=== PATIENT | female | born 1950 | race Caucasian/White ===

== ENCOUNTER → 2018-01-30 08:50 | Outpatient (CLI) | payer MEDICARE, OTHER, SELFPAY ==
--- NOTE | 2018-01-30 | DI.MG.S_ITS ---
BILATERAL DIGITAL SCREENING MAMMOGRAM 3D/2D WITH CAD: 01/30/2018 CLINICAL: Routine screening. Family history of breast cancer. Comparison is made to exams dated: 08/24/2014 mammogram, 06/04/2013 mammogram, and 08/11/2011 mammogram - [facility]. The tissue of both breasts is predominantly fatty. Current study was also evaluated with a Computer Aided Detection (CAD) system. No significant masses, calcifications, or other findings are seen in either breast. There has been no significant interval change. IMPRESSION: NEGATIVE There is no mammographic evidence of malignancy. A 1 year screening mammogram is recommended. This exam was interpreted at Station ID: [id number]. NOTE: For mammograms, a report in lay terms will be sent to the patient. Approximately 15% of breast malignancies will not be visualized mammographically. In the management of a palpable breast mass, a negative mammogram must not discourage biopsy of a clinically suspicious lesion. Electronically Signed By: Selvin barcenas/tay:01/30/2018 10:41:21 letter sent: Normal Exam ACR BI-RADS Category 1: Negative [id number]
== END ==
PROVIDERS: Family Provider Family Medicine; PCP Family Medicine; Visit Provider Family Medicine
DX: Z12.31 Encounter for screening mammogram for malignant neoplasm of breast (principal); M81.0 Age-related osteoporosis without current pathological fracture; Z80.3 Family history of malignant neoplasm of breast; Z78.0 Asymptomatic menopausal state; E07.9 Disorder of thyroid, unspecified
CPT/HCPCS: 77063; 77067; 77080

== ENCOUNTER → 2019-03-23 15:13 | Outpatient (CLI) | payer MEDICARE, OTHER, SELFPAY ==
--- NOTE | 2019-03-23 | DI.RAD.S_ITS ---
PROCEDURE: XR KNEE RT 3V INDICATIONS: R KNEE PAIN TECHNIQUE: 3 views of the knee were acquired. COMPARISON: [facility], , KNEE 3V RIGHT, 11/07/2016, 18:49. FINDINGS: Bones: There is mild narrowing of the right medial femorotibial compartment. There are small tricompartmental osteophytes. No acute fracture dislocation Soft tissues: No joint effusion. No suspicious soft tissue calcifications. IMPRESSION: Mild right knee osteoarthritis. Dictated by: Neli Gonzáles M.D. on 03/23/2019 at 15:02 Approved by: Neli Gonzáles M.D. on 03/23/2019 at 15:03
--- NOTE | 2019-03-23 | DI.RAD.S_ITS ---
PROCEDURE: XR HIP W PEL IF DONE LT 2V INDICATIONS: L HIP PAIN TECHNIQUE: AP pelvis with lateral view(s) of the left hip(s). COMPARISON: None. FINDINGS: Bones: No fractures or dislocations. Pelvic ring appears intact. No suspicious bony lesions. Soft tissues: The visualized bowel gas pattern is normal. No suspicious soft tissue calcifications. IMPRESSION: Only a slight degree of hip joint osteoarthritis is found present bilaterally, without trauma to the pelvis or hip. Dictated by: Dashawn Miranda M.D. on 03/23/2019 at 16:22 Approved by: Dashawn Miranda M.D. on 03/23/2019 at 16:22
== END ==
PROVIDERS: Family Provider Family Medicine; PCP Family Medicine; Visit Provider Family Medicine
DX: M25.552 Pain in left hip (principal); M25.561 Pain in right knee; M17.11 Unilateral primary osteoarthritis, right knee; M16.12 Unilateral primary osteoarthritis, left hip
CPT/HCPCS: 73502; 73562

== ENCOUNTER 2019-03-27 12:01 | Day surgery (SDC) | payer MEDICARE, OTHER, SELFPAY ==
[2019-03-27] VITALS (8 sets, daily range): BP systolic 114–134; BP diastolic 53–80; PULSE 48–59; RESP 12–19; TEMP 36–36.7; O2SAT 98–100; BMI 38.6
[2019-03-27] MEDS: SODIUM CHLORIDE 0.9% 1,000 ML 84 ML IV ×2 (13:19→17:00)
[2019-03-27] MEDS: HYOSCYAMINE 0.125 MG TABLET PO (13:20)
--- NOTE | 2019-03-27 14:25 | PM.OP.ENDO ---
Operative Date/Time/Diagnoses Date of procedure: 03/27/19 Time of procedure: 14:25 Pre-op diagnosis: 1. Screening for colon cancer 2. History of colon polyps 3. Family history of colon cancer Procedure & Clinicians Study performed: 1. Colonoscopy Same procedure as scheduled: Yes Indications: 1. Screening for colon cancer 2. History of colon polyps 3. Family history of colon cancer Surgeon: Anjelica Corbin Procedure Notes Procedure in detail: ENDOSCOPIST: Anjelica Corbin MD PROCEDURE: Colonoscopy INDICATIONS: 1. Screening for colon cancer 2. History of colon polyps 3. Family history of colon cancer MEDICATION: Levsin 0.125 mg sublingual, incremental doses of Versed and fentanyl until appropriate level sedation achieved. ASA CLASS: 3 CECAL WITHDRAWAL TIME: 7 minutes COMPLICATIONS: None. EXTENT OF PROCEDURE: Cecum. QUALITY OF PREP: Good with portions of liquid stool. PROCEDURE: Prior to insertion of the colonoscope, a digital rectal examination was accomplished with circumferential palpation of the distal rectal mucosa without significant findings being noted. The high-definition pediatric colonoscope was passed into the rectum in the usual fashion and advanced over towards the cecum with some difficulty; various position changes including left lateral decubitus, supine, and right lateral decubitus along with gentle holds were employed to intubate the cecum. The cecum was visualized but not only partially intubated secondary to resistance on the scope. Decision was made not to attempt full intubation to reduce risk. The ileocecal valve was fully visualize but the appendiceal stoma and medial wall were not fully inspected. ASCENDING COLON: As the colonoscope was withdrawn, care was taken to expose and inspect the haustral folds and no abnormalities were seen. HEPATIC FLEXURE: Normal no polyps, diverticula or other abnormalities. TRANSVERSE COLON: Normal no polyps, diverticula or other abnormalities. DESCENDING COLON: Normal no polyps, diverticula or other abnormalities. SIGMOID COLON: Minor diverticulosis, dilated veins, otherwise normal, no polyps, or other abnormalities. RECTUM: Normal. J maneuver was produced. There was no significant perianal disease. The J maneuver was broken. The remainder of the rectum was inspected and there was no external hemorrhoid disease. The scope was withdrawn. IMPRESSION: 1. Partial intubation of cecum 2. Diverticulosis, left-sided, mild 3. Dilated veins, left-sided, consistent with portal hypertension PLAN: 1. Secondary to family history of colon cancer and personal history of colon polyps, recommend repeat colonoscopy in 3-5 years. The possibility of a missed lesion including a malignancy has been discussed with the patient previously. Potential alarm symptoms have been discussed and should be reported immediately. Scope withdrawal time: 7 minutes Sedation minutes: 42 Findings: diverticulosis Specimen(s): none sent Complications: none Recommendations: Colonscopy in 5 years Follow up: as needed Disposition: PACU
--- NOTE | 2019-03-27 14:45 | SUR.PREOP ---
Dr. Corbin notified pt sipped water from [id number]. evaluated pt. Procedure delayed till end of day. Pt aware. Call light within reach.
--- NOTE | 2019-03-27 16:40 | SUR.OPER ---
GLASSES IN LABELED BAG TO PACU WITH PATIENT
[2019-03-27] MEDS: fentaNYL 250 MCG/5 ML INJ IV (16:47)
[2019-03-27] MEDS: MIDAZOLAM 5 MG/5 ML VIAL IV (16:47)
== END 2019-03-27 18:15 | disposition home or self-care (01) ==
PROVIDERS: Family Provider Family Medicine; PCP Family Medicine; Visit Provider Student in an Organized Health Care Education/Training Program
PROC: 0DJD8ZZ Inspection of Lower Intestinal Tract, Via Natural or Artificial Opening Endoscopic (ICD-10-PCS; CPT 45378; principal; 2019-03-27 14:00)
DX: Z86.010 Personal history of colon polyps (principal); Z80.0 Family history of malignant neoplasm of digestive organs; K57.30 Diverticulosis of large intestine without perforation or abscess without bleeding; J45.909 Unspecified asthma, uncomplicated; I48.91 Unspecified atrial fibrillation; E11.9 Type 2 diabetes mellitus without complications; E03.9 Hypothyroidism, unspecified; I10 Essential (primary) hypertension
CPT/HCPCS: G0105; J2250; J3010

== ENCOUNTER → 2021-01-20 13:56 | Outpatient (CLI) | payer MEDICARE, OTHER, SELFPAY ==
[2021-01-20] MEDS: COVID-19 VACC, Ad26(JANSSEN)/PF 0.5 ML IM (14:08)
== END ==
PROVIDERS: Family Provider Family Medicine; PCP Family Medicine; Visit Provider Internal Medicine
DX: Z23 Encounter for immunization (principal)
CPT/HCPCS: 0031A; 91303

== ENCOUNTER → 2021-02-15 07:50 | Outpatient (CLI) | payer MEDICARE, OTHER, SELFPAY ==
--- NOTE | 2021-02-15 08:18 | DI.ECHO.S_ITS ---
Name: YINKA BENJAMIN Study Date: 02/15/2021 Height: 65 in : [facility] Weight: 260 lb : : Gender: Other BSA: 2.2 m2 : :: 1950 Age: 70 yrs BP: 147/80 mmHg: :Reason For Study: MITRAL INSUFFICIENCY : :Ordering Physician: DAJA, : :GASPER FRANKEL Performed By: Kelsie Mann : :Referring: GASPER FARNSWORTH MD : + + Interpretation Summary 1) Normal left ventricular size, wall motion, and systolic function (EF 60- 65%). 2) Normal right ventricular size and function. 3) There is mild mitral regurgitation. 4) Compared to the Echo done 03/27/2016, no significant change. Procedure: A two-dimensional transthoracic echocardiogram with color flow and Doppler was performed. The study quality was technically adequate. There is no prior echocardiogram noted for this patient. The patient was in sinus bradycardia with heart rates between 48-64 bpm during the exam. Left Ventricle: The left ventricle is normal in size. There is mild concentric left ventricular hypertrophy. The ejection fraction is estimated to be 60-65%. Left ventricular systolic function appears normal without focal wall motion abnormalities. Right Ventricle: The right ventricle is normal in size and function. Atria: The left atrium is moderately dilated. Right atrial size is normal. There is no Doppler evidence for an interatrial shunt. Mitral Valve: The mitral valve is normal in structure and function. There is mild mitral regurgitation. Aortic Valve: The aortic valve is trileaflet. The aortic valve opens well. There is no aortic valve stenosis. There is trace aortic regurgitation. Tricuspid Valve: The tricuspid valve is normal in structure and function. Pulmonary artery pressures cannot be estimated because of the lack of a measurable TR jet velocity but the IVC suggests a CVP of around 8 mmHg. There is trace tricuspid regurgitation. Pulmonic Valve: The pulmonic valve leaflets are thin and pliable; valve motion is normal. There is no pulmonic valvular regurgitation. Great Vessels: The aortic root is normal size. The ascending aorta is at the upper limits of normal in size. The IVC is dilated (diameter is greater than 2.1 cm) yet it collapses greater than 50% with a sniff. This suggests a right atrial pressure of 8 mm Hg. Pericardium/ Pleura There is no pericardial effusion. There has been no significant change since the previous study. MMode/2D Measurements & Calculations LVIDd: 5.4 cm LVOT diam: 2.0 cm LVIDs: 3.6 cm Ao root diam: 3.3 cm FS: 33.6 % asc Aorta Diam: 3.6 cm IVSd: 1.2 cm Ao Arch Diam (Prox Trans): 3.3 cm LVPWd: 1.3 cm LV parks. diameter/BSA (cm/m^2): 2.4 LV sys. diameter/BSA (cm/m^2): 1.6 LA A2 area: 24.6 cm2 RA long axis: 4.7 cm LA A4 area: 21.0 cm2 RA area: 16.6 cm2 LA length (vol): 5.4 cm RA vol: 49.6 ml LA vol: 81.1 ml RA : 22.4 ml/m2 LA vol index: 36.7 ml/m2 IVC diam: 2.2 cm RVD1 (basal): 3.8 cm TAPSE: 2.1 cm Doppler Measurements & Calculations Ao V2 max: 147.1 cm/sec LVOT Max Fidencio: 127.3 cm/sec Ao V2 mean: 105.8 cm/sec LV V1 max P.5 mmHg Ao max P.7 mmHg LV V1 VTI: 31.8 cm Ao mean P.9 mmHg CAMPOS(I,D): 2.5 cm2 Ao V2 VTI: 38.2 cm CAMPOS(V,D): 2.6 cm2 sev ratio: 0.83 CAMPOS indexed to BSA (cm^2/m^2): 1.1 MV E max fidencio: 81.4 cm/sec PA pr(Accel): 19.1 mmHg MV A max fidencio: 84.5 cm/sec MV E/A: 0.96 Med Peak E' Fidencio: 10.0 cm/sec E/E' med: 8.1 Lat Peak E' Fidencio: 10.3 cm/sec E/E' lat: 7.9 E/e' average: 8.0 MV dec time: 0.19 sec SV(LVOT): 95.5 ml Reading Physician:09:35 AM
== END ==
PROVIDERS: Family Provider Family Medicine; PCP Family Medicine; Referring Provider Family Medicine; Visit Provider Family Medicine
DX: I34.0 Nonrheumatic mitral (valve) insufficiency (principal)
CPT/HCPCS: 93306